=== PATIENT | female | born 1930 | race Caucasian/White ===

== ENCOUNTER 2017-01-03 19:32 | Emergency (ER) | payer MEDICARE ==
[2015-02-10 14:16] VITALS: BMI 22.5
[~2017-01-03 19:32] MED LIST: CELEXA20 MG PO; OMEGA-3100 MG PO
[2017-01-03 20:52] LABS: BASOPHILS 0.1 % (0.0-2.0); EOSINOPHILS 0.1 % (0-7); HEMATOCRIT 34.1 % (36.0-48.0); HEMOGLOBIN 11.3 g/dL (12-16); IMMATURE GRANULOCYTES 0.3 % (0-5); LYMPHOCYTES 3.6 % (15-50); MCHC 33.1 g/dL (31.0-37.0); MCV 105.6 fL (80.0-100.0); MEAN PLATELET VOLUME 9.9 fL (7.4-10.4); MONOCYTES 9.4 % (2-11); NEUTROPHILS 86.5 % (40-80); RBC 3.23 10x6/uL (4.00-5.40); RDW 14.6 % (11.5-14.5); WBC 14.9 10x3/uL (4.8-10.8)
[2017-01-03 21:04] LABS: PLATELET COUNT 139 10x3/uL (130-400)
[2017-01-03 21:19] LABS: ALBUMIN 3.1 g/dL (3.4-5.0); ALKALINE PHOSPHATASE 251 U/L (46-116); ALT (SGPT) 35 U/L (10-68); BILIRUBIN - TOTAL 0.98 mg/dL (0.2-1.3); CALC OSMOLALITY 268 mosm/kg (275-300); CALCIUM 9.1 mg/dL (8.5-10.1); CARBON DIOXIDE 26.2 mmol/L (21.0-32.0); CHLORIDE - SERUM 96 mmol/L (98-107); CREATININE - SERUM 0.7 mg/dL (0.6-1.3); POTASSIUM - SERUM 3.8 mmol/L (3.5-5.1); PROTEIN - SERUM 7.9 g/dL (6.4-8.2); SODIUM 132 mmol/L (136-145); UREA NITROGEN 17 mg/dL (7-18); eGFR NON AFRICAN AMERICAN 84 mL/min (90-120)
[2017-01-03 21:22] LABS: GLUCOSE 141 mg/dL (74-106)
== END 2017-01-03 22:48 | disposition home or self-care (01) ==
LOC: D.ER 19:32
PROVIDERS: Physician Assistant Medical
DX: R11.10 Vomiting, unspecified (principal); C50.919 Malignant neoplasm of unspecified site of unspecified female breast; C22.8 Malignant neoplasm of liver, primary, unspecified as to type; E87.1 Hypo-osmolality and hyponatremia